=== PATIENT | female | born 1945 | race Caucasian/White ===

== ENCOUNTER 2017-04-18 11:38 | Emergency (ER) | payer OTHER ==
[~2017-04-18] VITALS: Ht 180.3 cm; Wt 77.3 kg
[~2017-04-18 11:38] MED LIST: CITROMA PO; DOCU-144 PO
[2017-04-18] MEDS ORDERED: SOD CHLORIDE 0.9% 500 ML IV STA (12:02)
[2017-04-18] MEDS ORDERED: MELO-110 PO (12:04)
[2017-04-18 12:05] VITALS: Ht 180.3 cm; Wt 77.3 kg
[2017-04-18] MEDS ORDERED: QUET400T PO (12:05)
[2017-04-18] MEDS ORDERED: OLAN10TA7 PO (12:05)
[2017-04-18] MEDS ORDERED: SERT25TA PO (12:06)
[2017-04-18] MEDS ORDERED: SIMV20TA PO (12:06)
[2017-04-18] MEDS ORDERED: CARB100T2 PO (12:07)
[2017-04-18] MEDS ORDERED: TRAZ150T65 PO (12:07)
[2017-04-18] MEDS ORDERED: DOCU100T PO (12:08)
[2017-04-18] MEDS ORDERED: IBUP400T22 PO (12:08)
--- NOTE | 2017-04-18 12:16 | ERA ---
ER Documentation Chief Complaint Date/Time DATE: 04/18/17 TIME: 12:07 Chief Complaint Weakness HPI This is a 71-year-old female with a history of hyperlipidemia, mild dementia, bipolar disorder, previous episodes of pancreatitis in the , multiple abdominal surgeries including appendectomy, cholecystectomy and total abdominal hysterectomy, no neck and back pain requiring posterior cervical as well as lumbar laminectomies, substance abuse including previous cocaine use in 2011, mostly wheelchair-bound but able to dress and feed herself typically who is presenting with persistent weakness for 1 week. The patient has a secondary complaint of left-sided neck stiffness and pain that is recurrent as well. The patient reports feeling weaker than usual over the last week or so. She is able to get out of the wheelchair, and occasionally does exercises. However, over the last week, she has not been able to do this as well per the nursing staff. The patient denies any fever or chills. She does not feel sick presently. She denies any headache or vision changes. She does endorse left- sided neck discomfort, but she is able to range her neck fully in all directions without any difficulty. She does not endorse any falls recently, but she has in the past. She cannot say when the last time was that she fell, but she thinks it was sometime ago. She denies any chest pain or trouble breathing. She denies any abdominal pain or discomfort. She does endorse occasional urinary frequency and incontinence. She also endorses constipation for which she is on medications for. Her urinary and GI complaints are chronic and unchanged today. The patient does not endorse any focal deficits. She does feel general weakness, but does not feel weak on one side or the other. She is alert and oriented 2-3. She knows her name. She knows that she is in a hospital, but she believes that she is at [facility]. She does have [employer] insurance. She was not able to discuss the date on her own, but when given choices she accurately chooses 2016. She also knows her birthday. ROS All systems reviewed and are negative except as per history of present illness. Medications Home Meds Reported Medications Ibuprofen* (Motrin*) 400 Mg Tab, 400 MG PO Q6H Y for PAIN, TAB 04/18/17 Docusate Sodium* (Dok*) 100 Mg Tablet, 100 MG PO DAILY Y for CONSTIPATION, #30 CAP 04/18/17 Trazodone Hcl* (Trazodone Hcl*) 150 Mg Tablet, 150 MG PO QHS, #30 TAB 04/18/17 Carbamazepine* (Carbamazepine*) 100 Mg Tab.chew, 200 MG PO TID, #90 TAB.CHEW 04/18/17 Simvastatin* (Zocor*) 20 Mg Tablet, 20 MG PO QHS, #30 TAB 04/18/17 Sertraline Hcl* (Zoloft*) 25 Mg Tablet, 25 MG PO DAILY, #30 TAB 04/18/17 Quetiapine Fumarate* (Seroquel*) 400 Mg Tablet, 800 MG PO HS, TAB 04/18/17 Olanzapine* (Zyprexa*) 10 Mg Tablet, 30 MG PO QHS, #30 TAB 04/18/17 Meloxicam* (Mobic*) 15 Mg Tablet, 15 MG PO DAILY, #30 TAB 04/18/17 Discontinued Scripts Docusate Sodium* (Colace*) 100 Mg Capsule, 100 MG PO DAILY Y for CONSTIPATION, # 14 CAP Prov:ALLEGRA CUADRA MD 10/08/15 Magnesium Citrate* (Citroma*) 300 Ml Soln, 300 ML PO DAILY Y for CONSTIPATION for 7 Days, BOTTLE Prov:ALLEGRA CUADRA MD 10/08/15 Allergies Allergies: Coded Allergies: No Known Allergy (Unverified , 04/18/17) PMhx/Soc History of Surgery: Yes (GALLBLADDER, APPENDECTOMY, HYSTERECTOMY) Anesthesia Reaction: No Hx Neurological Disorder: No Hx Respiratory Disorders: No Hx Cardiac Disorders: No Hx Psychiatric Problems: Yes (BIPOLAR) Hx Miscellaneous Medical Probl: No Hx Alcohol Use: No Hx Substance Use: No Hx Tobacco Use: No FmHx Patient is unable to remember family history Physical Exam Vitals Vital Signs Date Time Temp Pulse Resp B/P Pulse Ox O2 Delivery O2 Flow Rate FiO2 04/18/17 13:33 76 17 146/96 98 Room Air 04/18/17 12:05 98.6 90 17 108/77 96 Physical Exam Const: No apparent distress Head: Atraumatic Eyes: Normal Conjunctiva ENT: Normal External Ears, Nose and Mouth. Neck: Full range of motion. ~ No meningismus. Tenderness to deep palpation to the left side of the neck without any muscle spasm or fluctuance or tightness. Resp: Clear to auscultation bilaterally Cardio: Regular rate and rhythm, no murmurs Abd: Soft, non tender, non distended. Normal bowel sounds Skin: No petechiae or rashes Back: No midline or flank tenderness Ext: No cyanosis, or edema Neur: Awake and alert. Oriented 2-3. Cranial nerves intact. 5 out of 5 strength in all extremities. Sensation intact. Mild left arm pronator drift. Normal finger to nose coordination. Psych: Normal Mood and Affect. Outgoing personality. Result Diagram: 04/18/17 1240 04/18/17 1240 Results 24 hrs Laboratory Tests Test 04/18/17 12:40 White Blood Count 7.910^3/ul Red Blood Count 3.7310^6/ul Hemoglobin 12.3g/dl Hematocrit 36.3% Mean Corpuscular Volume 97.3fl Mean Corpuscular Hemoglobin 33.0pg Mean Corpuscular Hemoglobin Concent 33.9g/dl Red Cell Distribution Width 12.8% Platelet Count 33703^3/UL Mean Platelet Volume 11.0fl Neutrophils % 70.7% Lymphocytes % 18.3% Monocytes % 7.3% Eosinophils % 2.6% Basophils % 0.8% Nucleated Red Blood Cells % 0.0/100WBC Neutrophils # (Manual) 610^3/ul Lymphocytes # 1.510^3/ul Monocytes # 0.610^3/ul Eosinophils # 0.210^3/ul Basophils # 0.110^3/ul Nucleated Red Blood Cells # 0.010^3/ul Prothrombin Time 13.3Sec Prothrombin Time Ratio 1.0 INR International Normalized Ratio 1.01 Activated Partial Thromboplast Time 27.9Sec Urine Color YELLOW Urine Clarity CLOUDY Urine pH 5.0 Urine Specific [place] 1.018 Urine Ketones NEGATIVEmg/dL Urine Nitrite NEGATIVEmg/dL Urine Bilirubin NEGATIVEmg/dL Urine Urobilinogen NEGATIVEmg/dL Urine Leukocyte Esterase TRACELeu/ul Urine Microscopic RBC 1/HPF Urine Microscopic WBC 14/HPF Urine Squamous Epithelial Cells FEW/HPF Urine Bacteria FEW/HPF Urine Mucus FEW/HPF Urine Hemoglobin NEGATIVEmg/dL Urine Glucose NEGATIVEmg/dL Urine Total Protein NEGATIVEmg/dl Sodium Level 139mmol/L Potassium Level 3.6mmol/L Chloride Level 108mmol/L Carbon Dioxide Level 23mmol/L Anion Gap 12 Blood Urea Nitrogen 26mg/dl Creatinine 0.77mg/dl Glucose Level 92mg/dl Calcium Level 9.7mg/dl Total Bilirubin 0.0mg/dl Direct Bilirubin 0.00mg/dl Indirect Bilirubin 0.0mg/dl Aspartate Amino Transf (AST/SGOT) 22IU/L Alanine Aminotransferase (ALT/SGPT) 33IU/L Alkaline Phosphatase 90IU/L Troponin I < 0.012ng/ml Total Protein 7.0g/dl Albumin 4.1g/dl Globulin 2.90g/dl Albumin/Globulin Ratio 1.41 Free Thyroxine Index 1.69ug/ml Thyroxine (T4) 4.5ug/dl Triiodothyronine (T3) Uptake 37.6% Salicylates Level < 1.0mg/dl Urine Opiates Screen Negative Acetaminophen Level < 10.0ug/ml Urine Barbiturates Negative Urine Amphetamines Screen Negative Urine Benzodiazepines Screen Negative Urine Cocaine Screen Negative Urine Cannabinoids Negative Ethyl Alcohol Level < 10.0mg/dl Current Medications Medications (Trade) Dose Ordered Sig/Patrizia Route PRN Reason Start Time Stop Time Status Last Admin Dose Admin Sodium Chloride (NS) 500 ml @ 500 mls/hr Q1H STAT IV 04/18/17 12:02 04/18/17 13:01 DC 04/18/17 12:42 Ceftriaxone Sodium (Rocephin) 1 gm ONCE ONCE IM 04/18/17 14:00 04/18/17 14:01 Cancel Ceftriaxone Sodium 1 gm 1 gm ONCE ONCE IVPB 04/18/17 14:30 04/18/17 14:31 DC Ceftriaxone Sodium 500 mg/ Sodium Chloride 50 ml @ 100 mls/hr ONCE ONCE IVPB 04/18/17 15:00 04/18/17 15:00 DC Ceftriaxone Sodium (Rocephin) 50 ml @ 100 mls/hr ONCE ONCE IVPB 04/18/17 15:00 04/18/17 15:29 DC 04/18/17 15:03 Procedures/MDM The patient's presenting with weakness. A full workup was performed. EKG read by me: Rate/Rhythm: Regular rate and rhythm at a rate of 85 bpm. Intervals: Normal [place]: Left shifted Q waves in leads III and aVF, poor R-wave progression, nonspecific ST changes including flattening in the anterior leads. Impression: No evidence of acute ischemia or arrhythmia The patient's blood work was obtained and reviewed. The patient does not appear systemically ill. She does not have leukocytosis or left shift. She is not anemic. The patient has a mildly elevated BUN but no elevation of her creatinine. The rest of the CMP is unremarkable. The patient's troponin is negative The patient's chest x-ray demonstrated the following: PROCEDURE: XR Chest. CLINICAL INDICATION: Altered Mental Status TECHNIQUE: Single frontal view of the chest was obtained. COMPARISON: None. FINDINGS:The heart and mediastinum are within normal limits. The aortic arch is calcified. The lungs are clear. There is prominent elevation of the right hemidiaphragm. There is no significant pleural effusion or pneumothorax. IMPRESSION: No acute disease. Aortic atherosclerosis. RPTAT: EE Physician Loreta Date Time Electronically viewed and signed by Physician Loreta on 04/18/2017 13:[address] head demonstrated the following: PROCEDURE: CT Brain without contrast. CLINICAL INDICATION: Weakness TECHNIQUE: CT scan of the brain was performed on a multidetector high- resolution CT scan. Axial imaging was obtained of the brain without contrast administration. Coronal and sagittal reformatted images were obtained from the axial source images. Standard CT scan of the head without contrast protocols were performed. COMPARISON: None. FINDINGS: There is misregistration artifact. The ventricular system and peripheral CSF spaces are proportionate prominent consistent with severe generalized cerebral volume loss. Moderate to extensive periventricular and subcortical deep white matter changes consistent with chronic microvascular ischemic disease. Negative for intracranial masses hemorrhages or midline shift. Hong-white matter junction is unremarkable. There is hard atherosclerotic plaque involving the cavernous carotid arteries. The bones and calvarium are intact. Paranasal sinuses visualized are unremarkable. The mastoids are unremarkable. IMPRESSION: 1. Severe generalized cerebral volume loss and moderate to extensive nonspecific chronic microvascular ischemic disease. 2. Negative for intracranial masses hemorrhages or midline shift. RPTAT:AAJJ Physician Edel Date Time Electronically viewed and signed by Physician Edel on 04/18/2017 13:31 The patient's urinalysis showed no nitrites, but positive leuk esterase with greater than 10 WBCs and bacteria. I am concerned about the possibility of her symptoms to be associated with the urinary tract infection. The patient was given a gram of Rocephin in the emergency department. The patient is otherwise stable. Her vital signs have been unremarkable. She is stable to return to her nursing facility. She will be given a prescription for a urinary tract infection. She needs to follow-up with her primary doctor in 2-3 days for reevaluation. She will be given precautions with which to return to the emergency department. Departure Diagnosis: Primary Impression: Acute weakness Additional Impression: Urinary tract infection Qualified Code: N39.0 - Urinary tract infection without hematuria, site unspecified Condition: Stable Patient Instructions: Generalized Weakness, Urinary Tract Infections in Women Additional Instructions: You came to the emergency department for weakness that has been ongoing for approximately a week. Your blood work, physical exam, x-ray and CT imaging were reassuring. Your urine testing showed that you may have a urinary tract infection. Your given an antibiotic in the emergency department called ceftriaxone. He will be sent home with a prescription for Keflex. Please follow-up with your doctor in 2-3 days. Please return to the emergency department for worsening symptoms or any other concerns. GREGORY ARGUETA MD Apr 18, 2017 12:16
[2017-04-18 12:51] LABS: BASOPHIL # 0.1 10^3/ul (0.0-0.1); BASOPHILS % 0.8 % (0.0-2.0); EOSINOPHILS # 0.2 10^3/ul (0.0-0.5); EOSINOPHILS % 2.6 % (0.0-7.0); HEMATOCRIT 36.3 % (37.0-47.0); HEMOGLOBIN 12.3 g/dl (12.0-16.0); LYMPHOCYTES # 1.5 10^3/ul (0.8-2.9); LYMPHOCYTES % 18.3 % (15.0-51.0); MEAN CORPUSCULAR HGB CONC 33.9 g/dl (32.0-37.0); MEAN CORPUSCULAR VOLUME 97.3 fl (82.0-101.0); MONOCYTE # 0.6 10^3/ul (0.3-0.9); MONOCYTES % 7.3 % (0.0-11.0); NEUTROPHILS % 70.7 % (39.0-77.0); PLATELET COUNT 226 10^3/UL (140-415); RED BLOOD COUNT 3.73 10^6/ul (4.20-5.40); RED CELL DISTRIBUTION WIDTH 12.8 % (11.5-14.5); WHITE BLOOD COUNT 7.9 10^3/ul (4.8-10.8)
[2017-04-18 13:01] LABS: ADD UMIC YES; UR ASCORBIC ACID NEGATIVE (NEGATIVE); UR BACTERIA FEW /HPF (NONE SEEN); UR BILIRUBIN (Dip) NEGATIVE (NEGATIVE); UR BLOOD (Dip) NEGATIVE (NEGATIVE); UR CLARITY CLOUDY (CLEAR); UR COLOR YELLOW (YELLOW); UR GLUCOSE (Dip) NEGATIVE (NEGATIVE); UR KETONES (Dip) NEGATIVE (NEGATIVE); UR LEUKOCYTE ESTERASE (Dip) TRACE Leu/ul (NEGATIVE); UR MUCUS FEW /HPF (NONE SEEN); UR NITRITE (Dip) NEGATIVE (NEGATIVE); UR RBC 1 /HPF (0-5); UR SPECIFIC GRAVITY (Dip) 1.018 (1.003-1.030); UR SQUAMOUS EPITHELIAL CELL FEW /HPF (FEW); UR TOTAL PROTEIN (Dip) NEGATIVE (NEGATIVE); UR UROBILINOGEN (Dip) NEGATIVE (NEGATIVE)
[2017-04-18 13:11] LABS: ALANINE AMINOTRANSFERASE 33 IU/L (13-69); ALBUMIN 4.1 g/dl (3.3-4.9); ALBUMIN/GLOBULIN RATIO 1.41; ALKALINE PHOSPHATASE 90 IU/L (42-121); ANION GAP 12 (8-16); ASPARTATE AMINO TRANSFERASE 22 IU/L (15-46); BLOOD UREA NITROGEN 26 mg/dl (7-20); CALCIUM 9.7 mg/dl (8.4-10.2); CARBON DIOXIDE 23 mmol/L (21-31); CHLORIDE 108 mmol/L (97-110); CREATININE 0.77 mg/dl (0.44-1.00); GLUCOSE 92 mg/dl (70-220); INR 1.01; POTASSIUM 3.6 mmol/L (3.5-5.1); PROTIME 13.3 Sec (12.2-14.2); SODIUM 139 mmol/L (135-144)
[2017-04-18 13:12] LABS: ACETAMINOPHEN < 10.0 ug/ml (10.0-30.0); ETHANOL < 10.0 mg/dl; PARTIAL THROMBOPLASTIN TIME 27.9 Sec (25.0-35.0); SALICYLATE < 1.0 mg/dl (5.0-30.0)
[2017-04-18 13:22] LABS: BENZODIAZEPINES Negative (NEGATIVE)
[2017-04-18 13:24] LABS: TROPONIN-I < 0.012 ng/ml (0.00-0.12)
[2017-04-18 13:25] LABS: BARBITURATES Negative (NEGATIVE); CANNABINOIDS Negative (NEGATIVE); COCAINE Negative (NEGATIVE); OPIATES Negative (NEGATIVE)
--- NOTE | 2017-04-18 13:31 | RADRPT ---
PROCEDURE: CT Brain without contrast. CLINICAL INDICATION: Weakness TECHNIQUE: CT scan of the brain was performed on a multidetector high-resolution CT scan. Axial im aging was obtained of the brain without contrast administration. Coronal and sagittal reformatted i mages were obtained from the axial source images. Standard CT scan of the head without contrast prot ocols were performed. The total exam CTDI equals 45.01 mGy and the total exam DLP equals 810.25 mGy-cm. One or more of the following dose reduction techniques were used: - Automated exposure control. - Adjustment of the mA and/or kV according to patient size. Use of iterative reconstruction technique. COMPARISON: None. FINDINGS: There is misregistration artifact. The ventricular system and peripheral CSF spaces are proportiona te prominent consistent with severe generalized cerebral volume loss. Moderate to extensive periven tricular and subcortical deep white matter changes consistent with chronic microvascular ischemic di sease. Negative for intracranial masses hemorrhages or midline shift. Hong-white matter junction i s unremarkable. There is hard atherosclerotic plaque involving the cavernous carotid arteries. The bones and calvarium are intact. Paranasal sinuses visualized are unremarkable. The mastoids are u nremarkable. IMPRESSION: 1. Severe generalized cerebral volume loss and moderate to extensive nonspecific chronic microvascu lar ischemic disease. 2. Negative for intracranial masses hemorrhages or midline shift. RPTAT:AAJJ Physician Edel Date Time Electronically viewed and signed by Physician Edel on 04/18/2017 13:31 /
--- NOTE | 2017-04-18 13:37 | RADRPT ---
PROCEDURE: XR Chest. CLINICAL INDICATION: Altered Mental Status TECHNIQUE: Single frontal view of the chest was obtained. COMPARISON: None. FINDINGS: The heart and mediastinum are within normal limits. The aortic arch is calcified. The lungs are clear. There is prominent elevation of the right hemidiaphragm. There is no significant pleural effusion or pneumothorax. IMPRESSION: No acute disease. Aortic atherosclerosis. RPTAT: EE Physician Loreta Date Time Electronically viewed and signed by Shahriar Gomez Physician on 04/18/2017 13:37 /
[2017-04-18 13:59] LABS: T3 UPTAKE 37.6 % (23.5-40.5)
[2017-04-18] MEDS ORDERED: CEFTRIAXONE 1 GM INJ IM ONE (14:00)
[2017-04-18] MEDS ORDERED: CEFTRIAXONE 1 GM INJ IVPB ONE (14:30)
[2017-04-18] MEDS ORDERED: CEFTRIAXONE 500 MG in SOD CHLORIDE 0.9% 50 ML IVPB ONE (15:00)
[2017-04-18] MEDS ORDERED: CEFTRIAXONE 1 GM/50 ML (PMX) 50 ML IVPB ONE (15:00)
[2017-04-18] MEDS ORDERED: CEPH-443 PO (15:46)
[2017-04-18 18:10] VITALS: TEMP 98.1
[2017-04-18 19:43] VITALS: BP 150/80; PULSE 72; RESP 20
== END 2017-04-18 20:34 | disposition home or self-care (01) ==
LOC: E/R 11:38
DX: R53.1 Weakness (principal); N39.0 Urinary tract infection, site not specified
CPT/HCPCS: 36415; 70450; 71010; 80053; 80306; 80307; 81001; 84436; 84479; 84484; 85025; 85610; 85730; 87086; 93005; 96361; 96365; 99285; J0696; J7040

== ENCOUNTER 2017-06-17 08:52 | Emergency (ER) | payer OTHER ==
[~2017-06-17] VITALS: Ht 182.9 cm; Wt 81.8 kg
[~2017-06-17 08:52] MED LIST changes: +CARB100T2 PO; +CEPH-443 PO; -CITROMA PO; -DOCU-144 PO; +DOCU100T PO; +IBUP400T22 PO; +MELO-210 PO; +OLAN10TA7 PO; +QUET400T PO; +SERT25TA PO; +SIMV20TA PO; +TRAZ150T65 PO
[2017-06-17 09:00] VITALS: Ht 182.9 cm; Wt 81.8 kg
[2017-06-17] MEDS ORDERED: ONDANSETRON 4 MG INJ IV STA (09:27)
[2017-06-17] MEDS ORDERED: HYDROmorphONE 1 MG/ML SYG IV STA (09:27)
[2017-06-17 09:53] LABS: BASOPHIL # 0.1 10^3/ul (0.0-0.1); BASOPHILS % 0.8 % (0.0-2.0); EOSINOPHILS # 0.3 10^3/ul (0.0-0.5); EOSINOPHILS % 3.6 % (0.0-7.0); HEMATOCRIT 40.1 % (37.0-47.0); HEMOGLOBIN 13.1 g/dl (12.0-16.0); LYMPHOCYTES # 1.7 10^3/ul (0.8-2.9); LYMPHOCYTES % 22.3 % (15.0-51.0); MEAN CORPUSCULAR HEMOGLOBIN 32.7 pg (29.0-33.0); MEAN CORPUSCULAR HGB CONC 32.7 g/dl (32.0-37.0); MEAN PLATELET VOLUME 10.7 fl (7.4-10.4); MONOCYTE # 0.5 10^3/ul (0.3-0.9); MONOCYTES % 6.9 % (0.0-11.0); NEUTROPHILS % 66.1 % (39.0-77.0); PLATELET COUNT 229 10^3/UL (140-415); RED BLOOD COUNT 4.01 10^6/ul (4.20-5.40); WHITE BLOOD COUNT 7.6 10^3/ul (4.8-10.8)
[2017-06-17 10:09] LABS: ADD UMIC NO; UR ASCORBIC ACID NEGATIVE (NEGATIVE); UR BACTERIA FEW /HPF (NONE SEEN); UR BILIRUBIN (Dip) NEGATIVE (NEGATIVE); UR BLOOD (Dip) NEGATIVE (NEGATIVE); UR CLARITY SLIGHTLY CLOUDY (CLEAR); UR COLOR YELLOW (YELLOW); UR GLUCOSE (Dip) NEGATIVE (NEGATIVE); UR KETONES (Dip) NEGATIVE (NEGATIVE); UR LEUKOCYTE ESTERASE (Dip) NEGATIVE Leu/ul (NEGATIVE); UR MUCUS FEW /HPF (NONE SEEN); UR NITRITE (Dip) NEGATIVE (NEGATIVE); UR RBC 1 /HPF (0-5); UR SQUAMOUS EPITHELIAL CELL FEW /HPF (FEW); UR TOTAL PROTEIN (Dip) NEGATIVE (NEGATIVE); UR UROBILINOGEN (Dip) NEGATIVE (NEGATIVE)
[2017-06-17 10:29] LABS: ALBUMIN 4.2 g/dl (3.3-4.9); ALBUMIN/GLOBULIN RATIO 1.27; BILIRUBIN,INDIRECT 0.1 mg/dl (0-1.1); BILIRUBIN,TOTAL 0.1 mg/dl (0.2-1.3); CALCIUM 9.6 mg/dl (8.4-10.2); CREATININE 0.76 mg/dl (0.44-1.00); POTASSIUM 3.8 mmol/L (3.5-5.1); TOTAL PROTEIN 7.5 g/dl (6.1-8.1)
[2017-06-17] MEDS ORDERED: SOD CHLORIDE 0.9% 100 ML ONE (10:43)
[2017-06-17] MEDS ORDERED: IOHEXOL 300MG/ML 150 ML BTL ONE (10:44)
--- NOTE | 2017-06-17 11:13 | RADRPT ---
PROCEDURE: CT ABDOMEN AND PELVIS WITH IV CONTRAST. CLINICAL INDICATION: Abdominal pain TECHNIQUE: CT scan of the abdomen and pelvis without contrast was performed on a multidetector hig h-resolution CT scanner following the use of IV contrast. 100 cc Omnipaque-300 was administered. Cor onal and sagittal reformatted images were obtained from the axial source images. Images were reviewe d on a high-resolution PACS workstation. The total exam CTDI equals 15.1 mGy and the total exam DLP equals 905.2 mGy-cm. One or more of the following dose reduction techniques were used: Automated exposure control. Adjustment of the mA and/or kV according to patient size. Use of iterative reconstruction technique. COMPARISON: None FINDINGS: CT abdomen: The lung bases are clear. The heart size is within limits. There is no significant pericardial effus ion. There is mild aneurysmal dilatation of the thorax descending aorta measuring up to 3.1 cm. Hepatic morphology is within limits. No gross masses or lesions. Status post cholecystectomy. There is marked dilatation of the common bile duct measuring up to 3.2 cm, greater than expected for post cholecystectomy dilatation. Intrahepatic biliary dilatation is noted as well. The pancreatic duct ap pears to within normal limits. The spleen and pancreas are within limits. Both adrenal glands are within normal limits. Both kidneys are in normal anatomic position. No evidence of obstruction or hydronephrosis. No gross renal/ureteric calculi. The visualized GI tract demonstrate normal caliber loops of small and large bowel. No evidence of tata wel obstruction. The appendix not visualized, however no inflammatory changes within the right lower quadrant. There is thickening of the pereira of the stomach. Atherosclerotic calcification of the aorta is identified. No significant retroperitoneal lymphadenop athy. CT pelvis: Bladder is within limits. The rectosigmoid colon is within normal limits. Uterus is not visualized. No significant free fluid. No significant pelvic lymphadenopathy. Multilevel degenerative disease of the lumbosacral spine. Posterior spinal hardware is noted at the level of L3-L5. IMPRESSION: 1. Status post cholecystectomy. There is marked intrahepatic biliary dilatation and dilatation of th e common bile duct measuring up to 3.2 cm. This is greater than expected for post cholecystectomy di latation. No priors for comparison. Correlate with clinical findings and consider follow-up MRI of t he abdomen / MRCP or ERCP. 2. Thickening of the pereira of the stomach. Although this may be secondary to incomplete distension, underlying gastritis is not excluded. 3. No evidence of bowel obstruction. Stool and air noted large bowel suggestive of constipation. 4. Atherosclerotic disease of the aorta. 5. Multilevel degenerative disease and postsurgical changes with posterior spinal hardware at the le vels of L3-L5. 6. 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 7. Status post hysterectomy. RPTAT: AAPP Physician Hieu Date Time Electronically viewed and signed by Physician Hieu on 06/17/2017 11:13 JL/
[2017-06-17] MEDS ORDERED: CIPR500T4 PO (14:03)
[2017-06-17] MEDS ORDERED: ALPR0.25 PO (14:03)
[2017-06-17] MEDS ORDERED: POLY17PO6 PO (14:03)
--- NOTE | 2017-06-17 14:07 | ERD ---
ER Documentation Chief Complaint Date/Time DATE: 06/17/17 TIME: 14:04 Chief Complaint LLQ ABD PAIN X2 DAYS HPI This is 71-year-old female complains of suprapubic and infraumbilical pain for the past 2 days. She also complaining of constipation off and on but has been bad the past week. No blood in her stool lots of straining. No nausea vomiting diarrhea no fever no hematuria no dysuria but does have a little bit of frequency. No back pain, no cough no short of breath ROS All systems reviewed and are negative except as per history of present illness. Medications Home Meds Active Scripts Alprazolam* (Xanax*) 0.25 Mg Tablet, 0.25 MG PO Q8H Y for ANXIETY, #10 TAB Prov:CLARA VEGA DO 06/17/17 Ciprofloxacin Hcl* (Ciprofloxacin Hcl*) 500 Mg Tablet, 500 MG PO BID for 7 Days , TAB Prov:CLARA VEGA DO 06/17/17 Polyethylene Glycol* (Miralax*) 17 Gm Powd.pack, 17 GM PO DAILY, #7 Prov:CLARA VEGA DO 06/17/17 Reported Medications Ibuprofen* (Motrin*) 400 Mg Tab, 400 MG PO Q6H Y for PAIN, TAB 04/18/17 Docusate Sodium* (Dok*) 100 Mg Tablet, 100 MG PO DAILY Y for CONSTIPATION, #30 CAP 04/18/17 Trazodone Hcl* (Trazodone Hcl*) 150 Mg Tablet, 150 MG PO QHS, #30 TAB 04/18/17 Carbamazepine* (Carbamazepine*) 100 Mg Tab.chew, 200 MG PO TID, #90 TAB.CHEW 04/18/17 Simvastatin* (Zocor*) 20 Mg Tablet, 20 MG PO QHS, #30 TAB 04/18/17 Sertraline Hcl* (Zoloft*) 25 Mg Tablet, 25 MG PO DAILY, #30 TAB 04/18/17 Quetiapine Fumarate* (Seroquel*) 400 Mg Tablet, 800 MG PO HS, TAB 04/18/17 Olanzapine* (Zyprexa*) 10 Mg Tablet, 30 MG PO QHS, #30 TAB 04/18/17 Meloxicam* (Mobic*) 15 Mg Tablet, 15 MG PO DAILY, #30 TAB 04/18/17 Discontinued Scripts Cephalexin* (Keflex*) 500 Mg Capsule, 500 MG PO BID for 10 Days, CAP Prov:GREGORY ARGUETA MD 04/18/17 Allergies Allergies: Coded Allergies: No Known Allergy (Unverified , 06/17/17) PMhx/Soc History of Surgery: Yes (GALLBLADDER, APPENDECTOMY, HYSTERECTOMY) Anesthesia Reaction: No Hx Neurological Disorder: No Hx Respiratory Disorders: No Hx Cardiac Disorders: No Hx Psychiatric Problems: Yes (BIPOLAR, schizophrenia ) Hx Miscellaneous Medical Probl: No Hx Alcohol Use: No Hx Substance Use: No Hx Tobacco Use: No Smoking Status: Never smoker FmHx Family History: No coronary disease Physical Exam Vitals Vital Signs Date Time Temp Pulse Resp B/P Pulse Ox O2 Delivery O2 Flow Rate FiO2 06/17/17 12:30 72 18 153/87 96 06/17/17 09:50 82 18 155/92 96 06/17/17 09:00 98.6 85 18 151/139 96 Physical Exam Const: Well-developed, well-nourished Head: Atraumatic, normocephalic Eyes: Normal Conjunctiva, PERRLA, EOMI, normal sclera, no nystagmus ENT: Normal External Ears, Nose and Mouth, moist mucus membranes. Neck: Full range of motion. No meningismus, no lymphadenopathy. Resp: Clear to auscultation bilaterally, no wheezing, rhonchi, rales Cardio: Regular rate and rhythm, no murmurs, S1 S2 present Abd: Soft, mild infraumbilical and suprapubic tenderness, non distended. Normal bowel sounds, no guarding or rebound, no pulsitile abdominal masses or bruits Skin: No petechiae or rashes, no ecchymosis , no maculopapular rash Back: No midline or flank tenderness Ext: No cyanosis, or edema, FROM x 4, normal inspection, neurovascularly intact x 4 Neur: Awake and alert, STR 5/5 x 4, sensation intact x 4, no focal findings, cerebellum intact Psych: Normal Mood and Affect Result Diagram: 06/17/1740 06/17/1740 Results 24 hrs Laboratory Tests Test 06/17/17 09:40 White Blood Count 7.610^3/ul Red Blood Count 4.0110^6/ul Hemoglobin 13.1g/dl Hematocrit 40.1% Mean Corpuscular Volume 100.0fl Mean Corpuscular Hemoglobin 32.7pg Mean Corpuscular Hemoglobin Concent 32.7g/dl Red Cell Distribution Width 13.0% Platelet Count 04117^3/UL Mean Platelet Volume 10.7fl Neutrophils % 66.1% Lymphocytes % 22.3% Monocytes % 6.9% Eosinophils % 3.6% Basophils % 0.8% Nucleated Red Blood Cells % 0.0/100WBC Neutrophils # 5.010^3/ul Lymphocytes # 1.710^3/ul Monocytes # 0.510^3/ul Eosinophils # 0.310^3/ul Basophils # 0.110^3/ul Nucleated Red Blood Cells # 0.010^3/ul Urine Color YELLOW Urine Clarity SLIGHTLY CLOUDY Urine pH 7.0 Urine Specific [place] 1.010 Urine Ketones NEGATIVEmg/dL Urine Nitrite NEGATIVEmg/dL Urine Bilirubin NEGATIVEmg/dL Urine Urobilinogen NEGATIVEmg/dL Urine Leukocyte Esterase NEGATIVELeu/ul Urine Microscopic RBC 1/HPF Urine Microscopic WBC 3/HPF Urine Squamous Epithelial Cells FEW/HPF Urine Bacteria FEW/HPF Urine Mucus FEW/HPF Urine Hemoglobin NEGATIVEmg/dL Urine Glucose NEGATIVEmg/dL Urine Total Protein NEGATIVEmg/dl Sodium Level 146mmol/L Potassium Level 3.8mmol/L Chloride Level 111mmol/L Carbon Dioxide Level 24mmol/L Anion Gap 15 Blood Urea Nitrogen 15mg/dl Creatinine 0.76mg/dl Glucose Level 94mg/dl Calcium Level 9.6mg/dl Total Bilirubin 0.1mg/dl Direct Bilirubin 0.00mg/dl Indirect Bilirubin 0.1mg/dl Aspartate Amino Transf (AST/SGOT) 34IU/L Alanine Aminotransferase (ALT/SGPT) 35IU/L Alkaline Phosphatase 104IU/L Total Protein 7.5g/dl Albumin 4.2g/dl Globulin 3.30g/dl Albumin/Globulin Ratio 1.27 Lipase 109U/L Current Medications Medications (Trade) Dose Ordered Sig/Patrizia Route PRN Reason Start Time Stop Time Status Last Admin Dose Admin Hydromorphone HCl (Dilaudid) 1 mg ONCE STAT IV 06/17/17 09:27 06/17/17 09:28 DC 06/17/17 09:47 Ondansetron HCl (Zofran Inj) 4 mg ONCE STAT IV 06/17/17 09:27 06/17/17 09:28 DC 06/17/17 09:47 IV Flush 10 ml 10 ml STK-MED ONCE .ROUTE 06/17/17 10:43 06/17/17 10:44 DC 06/17/17 11:30 Sodium Chloride (NS) 100 ml @ ud STK-MED ONCE .ROUTE 06/17/17 10:43 06/17/17 10:44 DC 06/17/17 11:30 Iohexol (Omnipaque 300mg/ ml) 150 ml STK-MED ONCE .ROUTE 06/17/17 10:44 06/17/17 10:45 DC 06/17/17 11:30 Procedures/MDM Ordering MD: CLARA VEGA DO Location: E/R Room/Bed: PROCEDURE: CT ABDOMEN AND PELVIS WITH IV CONTRAST. CLINICAL INDICATION: Abdominal pain TECHNIQUE: CT scan of the abdomen and pelvis without contrast was performed on a multidetector high-resolution CT scanner following the use of IV contrast. 100 cc Omnipaque-300 was administered. Coronal and sagittal reformatted images were obtained from the axial source images. Images were reviewed on a high- resolution PACS workstation. The total exam CTDI equals 15.1 mGy and the total exam DLP equals 905.2 mGy-cm. One or more of the following dose reduction techniques were used: Automated exposure control. Adjustment of the mA and/or kV according to patient size. Use of iterative reconstruction technique. COMPARISON: None FINDINGS: CT abdomen: The lung bases are clear. The heart size is within limits. There is no significant pericardial effusion. There is mild aneurysmal dilatation of the thorax descending aorta measuring up to 3.1 cm. Hepatic morphology is within limits. No gross masses or lesions. Status post cholecystectomy. There is marked dilatation of the common bile duct measuring up to 3.2 cm, greater than expected for post cholecystectomy dilatation. Intrahepatic biliary dilatation is noted as well. The pancreatic duct appears to within normal limits. The spleen and pancreas are within limits. Both adrenal glands are within normal limits. Both kidneys are in normal anatomic position. No evidence of obstruction or hydronephrosis. No gross renal/ureteric calculi. The visualized GI tract demonstrate normal caliber loops of small and large bowel. No evidence of bowel obstruction. The appendix not visualized, however no inflammatory changes within the right lower quadrant. There is thickening of the pereira of the stomach. Atherosclerotic calcification of the aorta is identified. No significant retroperitoneal lymphadenopathy. CT pelvis: Bladder is within limits. The rectosigmoid colon is within normal limits. Uterus is not visualized. No significant free fluid. No significant pelvic lymphadenopathy. Multilevel degenerative disease of the lumbosacral spine. Posterior spinal hardware is noted at the level of L3-L5. IMPRESSION: 1. Status post cholecystectomy. There is marked intrahepatic biliary dilatation and dilatation of the common bile duct measuring up to 3.2 cm. This is greater than expected for post cholecystectomy dilatation. No priors for comparison. Correlate with clinical findings and consider follow-up MRI of the abdomen / MRCP or ERCP. 2. Thickening of the pereira of the stomach. Although this may be secondary to incomplete distension, underlying gastritis is not excluded. 3. No evidence of bowel obstruction. Stool and air noted large bowel suggestive of constipation. 4. Atherosclerotic disease of the aorta. 5. Multilevel degenerative disease and postsurgical changes with posterior spinal hardware at the levels of L3-L5. 6. 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 7. Status post hysterectomy. RPTAT: AAPP Physician Hieu Date Time Electronically viewed and signed by Physician Hieu on 06/17/2017 11:13 JL/ CC: CLARA VEGA DO Patient has mild urinary tract infection. No intra-abdominal pathology. Her common bile duct is dilated however this does not correlate clinically whatsoever she has no upper abdominal pain at all. We will treat with Cipro MiraLAX the patient is asking for something for her anxiety as well give her some Xanax. I did speak with [place] physician and she will follow-up there Departure Diagnosis: Primary Impression: Urinary tract infection Urinary tract infection type: acute cystitis Hematuria presence: without hematuria Qualified Code: N30.00 - Acute cystitis without hematuria Additional Impression: Constipation Constipation type: unspecified constipation type Qualified Code: K59.00 - Constipation, unspecified constipation type Condition: Stable Patient Instructions: Understanding Urinary Tract Infections (UTIs), Constipation (Adult) CLARA VEGA DO Jun 17, 2017 14:07
[2017-06-17 19:05] VITALS: BP 135/105; PULSE 77; RESP 16
== END 2017-06-17 19:12 | disposition home or self-care (01) ==
LOC: E/R 08:52
DX: N30.00 Acute cystitis without hematuria (principal); K59.00 Constipation, unspecified
CPT/HCPCS: 36415; 74177; 80053; 81001; 83690; 85025; 96374; 96375; 99285; J1170; J2405; Q9967; 81003

== ENCOUNTER 2018-12-24 11:47 | Emergency (ER) | payer OTHER ==
[~2018-12-24] VITALS: Ht 170.2 cm; Wt 70.0 kg
[~2018-12-24 11:47] MED LIST changes: +ALPR0.25 PO; -CEPH-443 PO; +CIPR500T4 PO; +IBUP-1561 PO; -IBUP400T22 PO; -MELO-210 PO; +MELO15TA30 PO; +POLY17PO6 PO
[2018-12-24 12:01] VITALS: Ht 170.2 cm; Wt 70.0 kg
[2018-12-24] MEDS ORDERED: ASPIRIN 325 MG TAB PO STA (12:03)
[2018-12-24] MEDS ORDERED: DOCU-144 PO (13:36)
[2018-12-24] MEDS ORDERED: OLAN10TA32 PO (13:37)
[2018-12-24] MEDS ORDERED: morphine 2 MG INJ IV STA (13:40)
[2018-12-24] MEDS ORDERED: SERT50TA6 PO (13:40)
[2018-12-24] MEDS ORDERED: TRA100 PO (13:42)
[2018-12-24] MEDS ORDERED: MELO15TA30 PO (13:43)
[2018-12-24] MEDS ORDERED: CARB200T43 PO (13:44)
[2018-12-24] MEDS ORDERED: SIMV20TA PO (13:44)
[2018-12-24] MEDS ORDERED: QUET400T PO (13:51)
--- NOTE | 2018-12-24 13:57 | ERD ---
ER Documentation Chief Complaint Chief Complaint BIB [facility] FOR EVAL OF CP THIS AM. NTG HPI 73-year-old female brought to the emergency department by ambulance for evaluation of chest pain. Patient is somewhat nonspecific about her symptoms but tells me she had the acute onset of nonspecific central chest discomfort. She reports no obvious radiation. She reports no shortness of breath or diaphoresis. The paramedics were called by her facility. I have reviewed the cloth doffer pre-hospital care. Pre-hospital vital signs were reviewed. Pre-hospital diagnostic tests were reviewed. Upon arrival, she provides no further details of her chest discomfort. As per the nursing note, she reported the pain is a 7/10. ROS All systems reviewed and are negative except as per history of present illness. Medications Home Meds Reported Medications Quetiapine Fumarate* (Seroquel*) 400 Mg Tablet, 600 MG PO HS, TAB 12/24/18 Carbamazepine* (Carbamazepine* XR) 200 Mg Tab.er.12h, 200 MG PO TID, #60 TAB.SA 12/24/18 Simvastatin* (Zocor*) 20 Mg Tablet, 20 MG PO QHS, #30 TAB 12/24/18 Meloxicam* (Mobic*) 15 Mg Tablet, 15 MG PO DAILY, #30 TAB 12/24/18 Trazodone Hcl* (Trazodone Hcl*) 100 Mg Tablet, 100 MG PO QHS, #30 TAB 12/24/18 Sertraline Hcl* (Sertraline Hcl*) 50 Mg Tablet, 25 MG PO DAILY, #30 TAB 12/24/18 Olanzapine* (Olanzapine* ODT) 10 Mg Tab.rapdis, 30 MG PO QHS, #30 TAB 12/24/18 Docusate Sodium* (Colace*) 100 Mg Capsule, 100 MG PO Q24H PRN for CONSTIPATION, #30 CAP 12/24/18 Discontinued Reported Medications Ibuprofen* (Motrin*) 400 Mg Tab, 400 MG PO Q6H PRN for PAIN, TAB 04/18/17 Docusate Sodium* (Dok*) 100 Mg Tablet, 100 MG PO DAILY PRN for CONSTIPATION, #30 CAP 04/18/17 Trazodone Hcl* (Trazodone Hcl*) 150 Mg Tablet, 150 MG PO QHS, #30 TAB 04/18/17 Carbamazepine* (Carbamazepine*) 100 Mg Tab.chew, 200 MG PO TID, #90 TAB.CHEW 04/18/17 Simvastatin* (Zocor*) 20 Mg Tablet, 20 MG PO QHS, #30 TAB 04/18/17 Sertraline Hcl* (Zoloft*) 25 Mg Tablet, 25 MG PO DAILY, #30 TAB 04/18/17 Quetiapine Fumarate* (Seroquel*) 400 Mg Tablet, 800 MG PO HS, TAB 04/18/17 Olanzapine* (Zyprexa*) 10 Mg Tablet, 30 MG PO QHS, #30 TAB 04/18/17 Meloxicam* (Mobic*) 15 Mg Tablet, 15 MG PO DAILY, #30 TAB 04/18/17 Discontinued Scripts Alprazolam* (Xanax*) 0.25 Mg Tablet, 0.25 MG PO Q8H PRN for ANXIETY, #10 TAB Prov:SILVERIO VEGASTOLOS A. DO 06/17/17 Ciprofloxacin Hcl* (Ciprofloxacin Hcl*) 500 Mg Tablet, 500 MG PO BID for 7 Days, TAB Prov:SILVERIO VEGASTOLOS A. DO 06/17/17 Polyethylene Glycol* (Miralax*) 17 Gm Powd.pack, 17 GM PO DAILY, #7 Prov:LEKKOSAPOSTOLOS A. DO 06/17/17 Allergies Allergies: Coded Allergies: No Known Allergy (Unverified , 12/24/18) PMhx/Soc History of Surgery: Yes (GALLBLADDER, APPENDECTOMY, HYSTERECTOMY, SPINAL FUSION) Anesthesia Reaction: No Hx Neurological Disorder: No Hx Respiratory Disorders: No Hx Cardiac Disorders: No Hx Psychiatric Problems: Yes (BIPOLAR, schizophrenia ) Hx Miscellaneous Medical Probl: No Hx Alcohol Use: No Hx Substance Use: No Hx Tobacco Use: No Smoking Status: Never smoker FmHx Noncontributory for chief complaint Physical Exam Vitals Vital Signs Date Temp Pulse Resp B/P (MAP) Pulse Ox O2 O2 Flow FiO2 Time Delivery Rate 12/24/18 76 22 138/127 98 Nasal 2.0 13:49 (131) Cannula 12/24/18 98.6 72 18 150/89 99 12:01 (109) Physical Exam GENERAL: Chronically ill, elderly patient in no acute distress HEENT: Pupils equal, round, and reactive to light. EOMI. There is no scleral icterus. NECK: C-spine is soft and supple, there is no meningismus. There is no cervical lymphadenopathy. LUNGS: Clear to auscultation bilaterally. There are no rales, wheezes or rhonchi. HEART: Regular rate and rhythm, no murmurs, clicks, rubs or gallops. ABDOMEN: Soft, non-tender, non-distended. There are bowel sounds in all four quadrants. No rebound or guarding. EXTREMITIES: There is no peripheral cyanosis or edema. No focal swelling or erythema. NEURO: The patient moves all four extremities with 5/5 strength. Cranial nerves II - XII are intact. Normal gait. Alert and oriented SKIN: There is no apparent rash or petechiae. HEME/LYMPHATIC: There is no evidence of excessive bruising or lymphedema. PSYCHIATRIC: The patient does not appear anxious or depressed. Result Diagram: 12/24/18 1240 12/24/18 1240 Results 24 hrs Laboratory Tests Test 12/24/18 12:40 White Blood Count 8.4 10^3/ul Red Blood Count 3.99 10^6/ul Hemoglobin 12.9 g/dl Hematocrit 39.8 % Mean Corpuscular Volume 99.7 fl Mean Corpuscular Hemoglobin 32.3 pg Mean Corpuscular Hemoglobin Concent 32.4 g/dl Red Cell Distribution Width 12.4 % Platelet Count 244 10^3/UL Mean Platelet Volume 10.1 fl Immature Granulocytes % 0.200 % Neutrophils % 62.0 % Lymphocytes % 26.0 % Monocytes % 7.8 % Eosinophils % 2.9 % Basophils % 1.1 % Nucleated Red Blood Cells % 0.0 /100WBC Immature Granulocytes # 0.020 10^3/ul Neutrophils # 5.2 10^3/ul Lymphocytes # 2.2 10^3/ul Monocytes # 0.7 10^3/ul Eosinophils # 0.2 10^3/ul Basophils # 0.1 10^3/ul Nucleated Red Blood Cells # 0.0 10^3/ul Sodium Level 143 mmol/L Potassium Level 4.3 mmol/L Chloride Level 109 mmol/L Carbon Dioxide Level 27 mmol/L Anion Gap 7 Blood Urea Nitrogen 15 mg/dl Creatinine 0.59 mg/dl Est Glomerular Filtrat Rate mL/min mL/min Glucose Level 84 mg/dl Calcium Level 10.1 mg/dl Total Bilirubin 0.0 mg/dl Direct Bilirubin 0.00 mg/dl Indirect Bilirubin 0.0 mg/dl Aspartate Amino Transf (AST/SGOT) 25 IU/L Alanine Aminotransferase (ALT/SGPT) 22 IU/L Alkaline Phosphatase 106 IU/L Troponin I < 0.012 ng/ml Total Protein 7.5 g/dl Albumin 4.1 g/dl Globulin 3.40 g/dl Albumin/Globulin Ratio 1.20 Current Medications Medications Dose Sig/Patrizia Start Time Status Last (Trade) Ordered Route PRN Stop Time Admin Dose Reason Admin Aspirin 325 mg ONCE STAT 12/24/18 DC 12/24/18 (Aspirin) PO 12:03 12:36 12/24/18 12:04 Morphine 2 mg ONCE STAT 12/24/18 DC 12/24/18 Sulfate IV 13:40 13:44 (morphine) 12/24/18 13:41 Procedures/MDM Patient was taken to a room, seen and evaluated. Comfort measures were initiated. Diagnostic tests were ordered and reviewed. 3 LEAD RHYTHM STRIP: Normal sinus rhythm without ectopy EK lead EKG reviewed by myself: Normal Sinus Rhythm Left axis deviation No ST elevation, depression, or T wave inversion Impression: Positive EKG without obvious ischemia, no significant interval change from the cloth doffer EKG RADIOLOGY: Reviewed with the radiologist CONSULTATION: [facility] was notified for transfer REEVALUATION: 1350: Diagnostic tests were appreciated. Patient remained stable. MEDICAL DECISION MAKING: Patient presents with chest pain of uncertain etiology. Differential diagnosis considered includes acute myocardial infarction, pulmonary embolism, as well as vascular and pulmonary concerns. I have reviewed the patients clinical risk factors, EKG, lab studies and imaging. The initial diagnostic tests are inconclusive. However given her age and high blood pressure, she will require admission for observation. Departure Diagnosis: Primary Impression: Chest pain Condition: Jose Maria AGUIRREKAYLEE Dec 24, 2018 13:57
[2018-12-24 14:27] VITALS: BP 146/103; PULSE 76; RESP 16
== END 2018-12-24 14:59 | disposition short-term general hospital (02) ==
LOC: E/R 11:47
DX: R07.9 Chest pain, unspecified (principal)
CPT/HCPCS: 71045; 80053; 84484; 85025; 93005; 96374; 99285; J2270